=== PATIENT | female | born 1960 | race Caucasian/White ===

== ENCOUNTER → 2020-07-16 | Outpatient (CLI) | payer OTHER ==
--- NOTE | 2020-07-20 12:02 | MM ---
Reason for exam: screening (asymptomatic). Last mammogram was performed 11 years and 7 months ago. History: Patient is postmenopausal. Family history of breast cancer in maternal aunt. Physical Findings: A clinical breast exam by your physician is recommended on an annual basis and results should be correlated with mammographic findings. MG 3D Screening Mammo W/Cad Bilateral CC and MLO view(s) were taken. Prior study comparison: December 02, 2008, bilateral digital screening mammogram. September 17, 2006, bilateral screening mammogram w/CAD. August 23, 2005, bilateral screening mammogram w/CAD. There are scattered fibroglandular densities. Finding: There are intermediate concern, suspicious, fine grouped/clustered calcifications in the upper outer quadrant right breast and posterior position on the left CC view. New finding since December 02, 2008, September 17, 2006, and August 23, 2005. ASSESSMENT: Incomplete: need additional imaging evaluation, BI-RAD 0 RECOMMENDATION: Special view mammogram of both breasts. [facility] will attempt to contact patient to return for supplemental views.
== END | disposition home or self-care (01) ==
LOC: RADMAMWWP 09:56
PROVIDERS: ATTEND Internal Medicine
DX: Z12.31 Encounter for screening mammogram for malignant neoplasm of breast (principal); Z80.3 Family history of malignant neoplasm of breast
CPT/HCPCS: 77063; 77067

== ENCOUNTER → 2020-07-26 | Outpatient (CLI) | payer OTHER ==
--- NOTE | 2020-07-27 10:26 | MM ---
Reason for exam: additional evaluation requested from abnormal screening. Last mammogram was performed less than 1 month ago. History: Patient is postmenopausal. Family history of breast cancer in maternal aunt. Took hormonal contraceptives for 7 years beginning at age 16. Physical Findings: Nurse did not find any significant physical abnormalities on exam. MG 3D Work Up W/Cad BUTCH Bilateral spot compression CC, spot compression MLO, and LM view(s) were taken. Prior study comparison: July 16, 2020, bilateral MG 3d screening mammo w/cad. Finding: There are suspicious fine, grouped/clustered calcifications in the upper outer quadrant, posterior position of the right breast 10cm from the nipple. Fine, grouped left breast calcifications lower outer quadrant at chest wall. These results were verbally communicated with the patient and result sheet given to the patient on 07/26/20. ASSESSMENT: Suspicious, BI-RAD 4 RECOMMENDATION: Surgical consultation and obtain prior study for comparison of both breasts. Stereotactic core biopsy of the right breast. (right breast calcifications can be stereotactic, left breast calcifications cannot be reached with stereotatic biopsy) Called Dr. Salazar's office with mammographic findings and has scheduled an appointment for the patient for 08/20/20 at 3:[address] Bates. Biopsy scheduled for 09/10/20 at 8:00. PRELIMINARY REPORT CALLED AND FAXED TO DR. BATES ON 07/27/20.
== END | disposition home or self-care (01) ==
LOC: RADMAMWWP 13:34
PROVIDERS: ATTEND Internal Medicine
DX: R92.8 Other abnormal and inconclusive findings on diagnostic imaging of breast (principal)
CPT/HCPCS: 77062; 77066

== ENCOUNTER → 2020-08-20 | Outpatient (CLI) | payer OTHER ==
[2020-08-20 15:19] VITALS: BP 129/83; PULSE 64; RESP 18; TEMP 98.6
--- NOTE | 2020-08-20 15:56 | P.GSHP ---
History of Present Illness H&P Date: 08/20/20 Chief Complaint: Abnormal bilateral mammograms Merle is a 59-year-old white female who had a bilateral mammogram performed on . Calcifications in both breasts were identified and diagnostic mammograms of both breasts are recommended. This was performed and . Recommendation following this was for a stereotactic core biopsy of the right breast for some grouped calcifications in the upper outer quadrant and needle localization and excisional biopsy of calcifications in the left breast noted in the lower outer quadrant at the chest wall. She is seen in consultation for this for DR. Salazar. This was a routine mammogram. She had not had a mammogram for approximately 5 years. She does not feel any lumps masses or nodules in either breast. She is not complaining of any nipple discharge or skin changes. She is not complaining of any trauma or infection in the breast. Caffeine: 10 cups/day Nicotine: 1 pack per day chocolate: occasional hormones: none Family history: Father: Bladder cancer Maternal aunt: Breast cancer at age 40 Hormonal history: Menarche:12 , Ab2, breast fed:no, age at first : 22 menopause: 53 BCP: 1 year Surgical history: Tubal ligation Medical history: Negative Social history: Nicotine: One pack per day Alcohol: Once or twice a week Drugs: Marijuana daily - Constitutional Constitutional: Denies chills, Denies fever - EENT Eyes: denies blurred vision, denies pain Ears: deny: decreased hearing, tinnitus Ears, nose, mouth and throat: Denies headache, Denies sore throat - Breasts Breasts: bilateral: as per HPI - Cardiovascular Cardiovascular: Denies shortness of breath - Respiratory Comment: nicotine use - Gastrointestinal Gastrointestinal: Denies abdominal pain, Denies diarrhea, Denies nausea, Denies vomiting - Genitourinary (Female) Genitourinary: Denies dysuria, Denies hematuria - Menstruation Menstruation: Reports postmenopausal - Musculoskeletal Musculoskeletal: Denies myalgias - Integumentary Integumentary: Denies pruritus, Denies rash - Neurological Neurological: Denies numbness, Denies weakness - Psychiatric Psychiatric: Denies anxiety, Denies depression - Endocrine Endocrine: Denies fatigue, Denies weight change - Hematologic/Lymphatic Comment: none - Allergic/Immunologic Allergic/Immunologic: Reports as per HPI Past Medical History History of Any Multi-Drug Resistant Organisms: None Reported Smoking Status: Current every day smoker Medications and Allergies Home Medications Medication Instructions Recorded Confirmed Type No Known Home Medications 08/20/20 08/20/20 History Allergies Allergy/AdvReac Type Severity Reaction Status Date / Time No Known Allergies Allergy Unverified 08/20/20 15:19 Surgical - Exam Vital Signs Temp Pulse Resp BP Pulse Ox 98.6 F 64 18 129/83 95 08/20/20 15:16 08/20/20 15:16 08/20/20 15:16 08/20/20 15:16 08/20/20 15:16 BMI 27.4 - General well developed, well nourished, no distress - Eyes normal ocular movement - ENT normal pinna, normal mucosa - Neck no masses, trachea midline - Respiratory normal respiratory effort, clear to auscultation - Cardiovascular Rhythm: regular Heart Sounds: normal: S1, S2 - Abdomen Abdomen: soft, non tender, no guarding, no rigid, no rebound - Neurologic no disoriented, no combative - Musculoskeletal normal gait - Psychiatric oriented to time, oriented to person, oriented to place, speech is normal, memory intact Breast exam: BRA: 38C inspection: Bilateral grade 2/3 ptosis, right breast slightly larger than left breast Palpation: Right breast: Multi-positional exam fibrocystic changes, no dominant masses or nodules of concern Right axilla: No adenopathy of concern Left breast: Multi-positional exam fibrocystic changes, no dominant masses or nodules of concern Left axilla: No adenopathy of concern Results Mammograms independently reviewed. Lesion in the right breast is felt to be am iable to stay tactic core biopsy. Patient in the left breast would require needle local excision in the operating room. Assessment and Plan Assessment: Impression: 1. Bilateral mammographic abnormality/microcalcifications of concern 2. Fibrocystic breast changes 3. Family history of cancer 4. Nicotine dependence 5. Caffeine use Plan: 1. Stereotactic core biopsy right breast 2. Needle local excisional biopsy of lesion of concern in left breast 3. Encourage decreasing caffeine use and nicotine CC: Dr. Salazar Encounter 40 minutes, time spent in physical exam, review of medical records, and counselling
== END ==
LOC: WWCWWP 14:58
PROVIDERS: ATTEND Surgery
DX: N60.11 Diffuse cystic mastopathy of right breast (principal); N60.12 Diffuse cystic mastopathy of left breast; F17.210 Nicotine dependence, cigarettes, uncomplicated; Z80.52 Family history of malignant neoplasm of bladder

== ENCOUNTER → 2020-09-27 | Day surgery (SDC) | payer OTHER ==
[2020-09-10 07:22] VITALS: RESP 16
[2020-09-27 08:40] VITALS: BP 130/86; PULSE 58; TEMP 97.8
--- NOTE | 2020-09-27 11:47 | MM ---
Stereotactic Mammotome core biopsy right breast. HISTORY: Microcalcifications The Microcalcifications in question within the right breast were targeted by the undersigned. Procedure was performed by the undersigned. Informed consent was obtained and all of the patients questions were answered. The standard sterile technique was utilized and appropriate local anesthesia was obtained with 1% lidocaine. Mammotome probe was advanced and multiple core samples were obtained and sent to pathology for interpretation. Microclip marker was deployed at the site of biopsy. Post procedural mammogram demonstrates appropriate deployment of radiopaque clip marker. The patient tolerated the procedure well and left the department in stable condition. Pathology results are pending. IMPRESSION: Successful stereotactic core biopsy right breast with pathology results pending. Pathology Results: Benign RIGHT BREAST, STEREOTACTIC CORE BIOPSY: Fibroadenomatoid hyperplasia with calcifications in a background of fibrocystic changes. Recommendation Follow up mammogram of the right breast in 6 months. RONNA
== END ==
LOC: RADMAMWWP 09-10 07:06
PROVIDERS: ATTEND Surgery
DX: D24.1 Benign neoplasm of right breast (principal); N60.11 Diffuse cystic mastopathy of right breast
CPT/HCPCS: 88305; 19081; A4648; J2001

== ENCOUNTER → 2020-12-02 | Outpatient (CLI) | payer OTHER ==
[2020-12-02 15:27] VITALS: BP 140/71; PULSE 61; RESP 18; TEMP 99.2
--- NOTE | 2020-12-02 15:41 | P.PN ---
Subjective Progress Note Date: 12/02/20 Principal diagnosis: Mammographic abnormality left breast Merle is a 60-year-old white female who had a bilateral mammogram performed on . Calcifications in both breasts were identified and diagnostic mammograms of both breasts were recommended. These were performed on . Recommendation following this was for a stereotactic core biopsy of the right breast for some grouped calcifications in the upper outer quadrant and needle localization and excisional biopsy of calcifications in the left breast noted in the lower outer quadrant at the chest wall. She is seen in consultation for this for DR. Salazar. This was a routine mammogram. She had not had a tika mogram for approximately 5 years. She does not feel any lumps masses or nodules in either breast. She was not complaining of any nipple discharge or skin changes. She was not complaining of any trauma or infection in the breast. She had a stereotactic core biopsy of the right breast and [id number] which was benign. She is still waiting to have the needle localization and excisional biopsy of the microcalcifications of concern in the left breast. Mammogram was reviewed with Dr. Hamilton from radiology and the feeling was the area in the left breast was too close to the chest wall for stereo biopsy. Additionally although it appears similar to the calcifications removed from the right breast there are suspicious enough to warrant excisional biopsy. Caffeine: 10 cups/day Nicotine: 1 pack per day chocolate: occasional hormones: none Family history: Father: Bladder cancer Maternal aunt: Breast cancer at age 40 Hormonal history: Menarche:12 , Ab2, breast fed:no, age at first : 22 menopause: 53 BCP: 1 year Surgical history: Tubal ligation Medical history: Negative Social history: Nicotine: One pack per day Alcohol: Once or twice a week Drugs: Marijuana daily - Constitutional Constitutional: Denies chills, Denies fever - EENT Eyes: denies blurred vision, denies pain Ears: deny: decreased hearing, tinnitus Ears, nose, mouth and throat: Denies headache, Denies sore throat - Breasts Breasts: bilateral: as per HPI - Cardiovascular Cardiovascular: Denies shortness of breath - Respiratory Comment: nicotine use - Gastrointestinal Gastrointestinal: Denies abdominal pain, Denies diarrhea, Denies nausea, Denies vomiting - Genitourinary (Female) Genitourinary: Denies dysuria, Denies hematuria - Menstruation Menstruation: Reports postmenopausal - Musculoskeletal Musculoskeletal: Denies myalgias - Integumentary Integumentary: Denies pruritus, Denies rash - Neurological Neurological: Denies numbness, Denies weakness - Psychiatric Psychiatric: Denies anxiety, Denies depression - Endocrine Endocrine: Denies fatigue, Denies weight change - Hematologic/Lymphatic Comment: none - Allergic/Immunologic Allergic/Immunologic: Reports as per HPI Objective - Exam BMI 25.8 - Constitutional General appearance: Present: average body habitus - EENT Eyes: Present: EOMI ENT: Present: hearing grossly normal - Neck Neck: Present: normal ROM - Respiratory Respiratory: bilateral: CTA - Cardiovascular Rhythm: regular Heart sounds: normal: S1, S2 - Gastrointestinal General gastrointestinal: Present: soft - Integumentary Integumentary: Present: normal turgor - Musculoskeletal Musculoskeletal: Present: gait normal - Psychiatric Psychiatric: Present: A&O x's 3, appropriate affect, intact judgment & insight - Additional findings Additional findings: Breast Exam: BRA: 36D inspection: Bilateral grade 2/3 ptosis Right breast slightly larger than left breast Palpation: Right breast: Multi-positional exam fibrocystic changes no dominant masses or nodules of concern Right axilla: No adenopathy of concern Left breast: Multiple positional exam fibrocystic changes no dominant masses or nodules of concern Left axilla: No adenopathy of concern Assessment and Plan Assessment: Impression: 1. Fibrocystic breast changes 2. Microcalcifications of concern left breast not amiable to percutaneous biopsy Plan: 1. Needle localization excisional lumpectomy left breast 2. Possible onco-plastic tissue transfer 3. We have discussed mastopexy incision however secondary to the fact that the patient is a smoker I would not recommend this 4. I have recommended that the patient stop smoking prior to the operation, she is going to consider this Risks and benefits of the procedure are discussed with the patient. Risks include but are not limited to bleeding, infection, reaction to the anesthetic. There is a risk that the needle could slip and that the calcifications not be removed in which case further procedure may be recommended. She understands and wishes to proceed. CC: Dr. Salazar
== END | disposition home or self-care (01) ==
LOC: WWCWWP 15:18
PROVIDERS: ATTEND Surgery
DX: N60.12 Diffuse cystic mastopathy of left breast (principal); N60.11 Diffuse cystic mastopathy of right breast; R92.0 Mammographic microcalcification found on diagnostic imaging of breast; F17.210 Nicotine dependence, cigarettes, uncomplicated

== ENCOUNTER → 2020-12-28 | Day surgery (SDC) | payer OTHER ==
[~2020-12-28] MED LIST: ALPRAZolam 0.25 MG TAB ONE; DEXAMETHASONE SOD PHOSPHATE 4 MG/ML 1 ML VIAL IV ONE; HEPARIN SODIUM,PORCINE/PF 5,000 UNIT/0.5 ML SYRINGE SQ PRN; HYDROmorphone 0.5 MG/0.5 ML SYRINGE IVP PRN; LACTATED RINGERS 1,000 ML IV SCH; ONDANSETRON 4 MG/2 ML VIAL IVP ONE; Pre Op ABX Message 1 EACH MISC MISCELLANE ONE
[2020-12-28 09:50] VITALS: BP 138/78; PULSE 54; RESP 16; TEMP 97.9
--- NOTE | 2020-12-28 10:53 | P.PN ---
Progress Note - Text Progress Note Date: 12/28/20 Patient was seen for needle localization of area of concern in her breast. Dr. Faria radiology called stating that the lesion was too far posterior and he was unable to localize it. She was therefore recommended to undergo an attempted 3-D stereo biopsy. If this is unsuccessful then a six-month follow-up would be recommended. This was discussed with the patient. She understands and this is being scheduled.
--- NOTE | 2020-12-28 13:18 | MM ---
EXAMINATION TYPE: MG discontinued needle loc LT DATE OF EXAM: 12/28/2020 10:28 AM COMPARISON: 07/26/2020 HISTORY: Microcalcifications Multiple attempts were made at localizing the microcalcifications within the far posterior left breas t however they could not be visualized in 2 planes. Biopsy was therefore discontinued. I recommend an attempt at localization and subsequent biopsy utilizing the 3-D needle localization technique IMPRESSION: Suspicious BI-RADS 4 Recommendation: 3-D guided needle localization and open biopsy.
== END ==
LOC: OR 08:28
PROVIDERS: ATTEND Surgery
DX: R92.1 Mammographic calcification found on diagnostic imaging of breast (principal)

== ENCOUNTER → 2021-03-04 | Outpatient (CLI) | payer OTHER ==
[2021-03-04 13:10] VITALS: BP 125/80; PULSE 64; RESP 16; TEMP 98.3
--- NOTE | 2021-03-04 13:23 | P.PN ---
Subjective Progress Note Date: 03/04/21 Principal diagnosis: fibrocystic bilateral breast changes Merle is a 60-year-old white female who had a bilateral mammogram performed on . Calcifications in both breasts were identified and diagnostic mammograms of both breasts were recommended. These were performed on . Recommendation following this was for a stereotactic core biopsy of the right breast for some grouped calcifications in the upper outer quadrant and needle localization and excisional biopsy of calcifications in the left breast noted in the lower outer quadrant at the chest wall. She is seen in consultation for this for DR. Salazar. This was a routine mammogram. She had not had a mammogram for approximately 5 years. She does not feel any lumps masses or nodules in either breast. She was not complaining of any nipple discharge or skin changes. She was not complaining of any trauma or infection in the breast. She had a stereotactic core biopsy of the right breast and which was benign. She is still waiting to have the needle localization and excisional b iopsy of the microcalcifications of concern in the left breast. Mammogram was reviewed with Dr. Hamilton from radiology and the feeling was the area in the left breast was too close to the chest wall for stereo biopsy. Additionally although it appears similar to the calcifications removed from the right breast there are suspicious enough to warrant excisional biopsy. The needle localization and excision were cancelled and the patient had a 3D stero biopsy on 02-24 of the left breast. This was benign and felt to be concordant. She is due for a right breast mammogram at this time which will be 6 months after she had a stereotactic core biopsy on [id number]. This was benign fibroadenomatosis hyperplasia with calcifications. Objective - Vital Signs Vital signs: Vital Signs Temp 98.3 F 03/04/21 13:06 Pulse 64 03/04/21 13:06 Resp 16 03/04/21 13:06 BP 125/80 03/04/21 13:06 Pulse Ox 97 03/04/21 13:06 Intake & Output 03/03/21 03/04/21 03/04/21 18:59 06:59 18:59 Weight 72.575 kg - Constitutional General appearance: Present: cooperative - EENT Eyes: Present: EOMI ENT: Present: hearing grossly normal - Integumentary Integumentary Comment(s): mild echymosis at the biopsy site, no evidence of hematoma or infection Assessment and Plan Assessment: Impression: Bilateral fibrocystic breast changes Plan: Patient is due for a right breast mammogram at this time the left breast mammogram in 6 months to see her again after her right breast mammogram CC: Dr. Peralta
== END | disposition home or self-care (01) ==
LOC: WWCWWP 13:00
PROVIDERS: ATTEND Surgery
DX: Z53.9 Procedure and treatment not carried out, unspecified reason (principal)

== ENCOUNTER → 2021-11-28 | Outpatient (CLI) | payer OTHER ==
--- NOTE | 2021-11-29 14:33 | MM ---
Reason for Exam: Screening (asymptomatic). Last mammogram was performed 1 year(s) and 4 month(s) ago. Patient History: Menarche at age 11. First Full-Term at age 22. Postmenopausal. Hormonal Contraceptives for 7 years from age 16 until age 24. 12/16/2020, Benign MG stereo VAD BX LT - 2 on the left side. 09/27/2020, Benign Core Biopsy on the right side. 12/28/2020, MG discontinued needle loc LT on the left side. Maternal aunt had breast cancer, age 40. Risk Values: Adelina 5 year model risk: 2.1%. NCI Lifetime model risk: 9.2%. Prior Study Comparison: 06/14/2016 Screening Mammogram, [place]. 07/16/2020 Bilateral Screening Mammogram, [facility]. 07/26/2020 Bilateral Diagnostic Mammogram, [facility]. Tissue Density: There are scattered fibroglandular densities. Findings: Analyzed By CAD. No suspicious groups of microcalcifications, spiculated or lobular masses, architectural distortion or other secondary signs of malignancy are mammographically apparent. Overall Assessment: Benign, BI-RAD 2 Management: Screening Mammogram of both breasts in 1 year. A negative mammogram report should not preclude additional follow up of suspicious palpable abnormalities. Patient should continue monthly self breast exam. A clinical breast exam by your physician is recommended on an annual basis and results should be correlated with mammographic findings. Electronically signed and approved by: Amari Calabrese D.O. Radiologis
== END | disposition home or self-care (01) ==
LOC: RADMAMWWP 11:54
PROVIDERS: ATTEND Family Medicine
DX: Z12.39 Encounter for other screening for malignant neoplasm of breast (principal)
CPT/HCPCS: 77063; 77067

== ENCOUNTER → 2023-01-08 | Outpatient (CLI) | payer OTHER ==
--- NOTE | 2023-01-08 13:26 | MM ---
Reason for Exam: Screening (asymptomatic). Last mammogram was performed 1 year(s) and 2 month(s) ago. Patient History: Menarche at age 11. First Full-Term at age 22. Postmenopausal. Hormonal Contraceptives for 7 years from age 16 until age 24. 12/16/2020, Benign MG stereo VAD BX LT - 2 on the left side. 09/27/2020, Benign Core Biopsy on the right side. 12/28/2020, MG discontinued needle loc LT on the left side. Maternal aunt had breast cancer, age 40. Risk Values: Adelina 5 year model risk: 2.1%. NCI Lifetime model risk: 8.9%. Prior Study Comparison: 07/16/2020 Bilateral Screening Mammogram, [facility]. 07/26/2020 Bilateral Diagnostic Mammogram, [facility]. 11/28/2021 Bilateral MG 3D screening mammo w/cad, [facility]. Tissue Density: The breast tissue is heterogeneously dense. This may lower the sensitivity of mammography. Findings: Analyzed By CAD. Benign-appearing calcifications. Bilateral biopsy clips are present. There is no suspicious group of microcalcifications or new suspicious mass in either breast. Overall Assessment: Benign, BI-RAD 2 Management: Screening Mammogram of both breasts in [address] [facility] will attempt to contact patient to return for supplemental views and ultrasound if indicated. Patient should continue monthly self-breast exams. A clinical breast exam by your physician is recommended on an annual basis. This exam should not preclude additional follow-up of suspicious palpable abnormalities. Note on Adelina scores and lifetime risk: 1. A Adelina score greater than 3% is considered moderate risk. If this is the case, consider specialist referral to assess eligibility for a risk reducing agent. 2. If overall lifetime risk for the development of breast cancer is 20% or higher, the patient may qualify for future screening with alternating mammogram and breast MRI. Electronically signed and approved by: Ab Álvarez DO
== END | disposition home or self-care (01) ==
LOC: RADMAMWWP 07:55
PROVIDERS: ATTEND Family Medicine
DX: Z12.31 Encounter for screening mammogram for malignant neoplasm of breast (principal); Z78.0 Asymptomatic menopausal state; Z80.3 Family history of malignant neoplasm of breast; Z72.0 Tobacco use
CPT/HCPCS: 77063; 77067

== ENCOUNTER → 2023-02-19 | Outpatient (CLI) | payer OTHER ==
--- NOTE | 2023-02-19 08:25 | CTL ---
EXAMINATION TYPE: CT Low Dose Lung DATE OF EXAM ORDERED: 02/19/2023 COMPARISON: None HISTORY: . Low Dose CT Lung Screening CT DLP: 110.[address] CTDI: 3.2 mGy IV CONTRAST USED: None. SCREENING VISIT: First visit COMPARISON: None. TECHNIQUE: Low dose computed tomography scan was performed through the chest at 1 millimeter thick se ctions and reconstructed images in the coronal plane at [address] DIAGNOSTIC QUALITY: Satisfactory FINDINGS: LUNG NODULES: Not presentLeft lung: no nodules identified.Right lung: no nodules identified. LUNGS: COPD: Severity: None Fibrosis: Severity:None Lymph nodes: None Other findings: None RIGHT PLEURAL SPACE: Effusion: None Calcification: None Thickening: None Pneumothorax: None LEFT PLEURAL SPACE: Effusion: None Calcification: None Thickening: None Pneumothorax: None HEART: Heart Size: Mildly enlarged. Ascending thoracic aortic aneurysm measuring 4.1 cm in AP dimension. Coronary calcification: Mild Pericardial effusion: None OTHER FINDINGS: Upper abdomen: No significant abnormality Bony thorax: Degenerative changes Supraclavicular region: No significant abnormalityOther: No significant abnormalityI IMPRESSION: 1. Ascending thoracic aortic aneurysm. 2. Mild COPD. FOLLOW UP CT CHEST RECOMMENDATION: Follow-up screening in one year CT LUNG RAD: LUNG RAD CATEGORY 1 negative
== END | disposition home or self-care (01) ==
LOC: RADCTMAIN 07:09
PROVIDERS: ATTEND Family Medicine
DX: Z12.2 Encounter for screening for malignant neoplasm of respiratory organs (principal); I71.21 Aneurysm of the ascending aorta, without rupture; J44.9 Chronic obstructive pulmonary disease, unspecified; Z72.0 Tobacco use
CPT/HCPCS: 71271